=== PATIENT | male | born 1965 | race Hispanic/Latino ===

== ENCOUNTER 2019-06-25 21:29 | Emergency (ER) | payer OTHER ==
[~2019-06-25] VITALS: Ht 170.2 cm; Wt 88.5 kg
--- OUTSIDE RECORDS SUMMARY | 2019-06-25 21:32 | XMS REPORT | Summary of Care ---
Author Author [facility] Organization [facility] Address Unknown Phone Unavailable Care Team Providers Care Flight Service Agent Name Role Phone Raul Desouza MD PCP Reason for Referral * Radiology Services (Routine) Referred By Contact Referred To Contact Status Reason Specialty Diagnoses / Procedures Danny Akbar MD [address] [place] [address] Authorization Cardiology Diagnoses Not Needed Coronary artery disease of [place] artery of [place] heart with stable angina pectoris S/P drug eluting coronary stent placement Dyslipidemia Essential hypertension Snoring limited P rocedures ECHO LIMITED * Consult, Test & Treat (Routine) Referred By Contact Referred To Contact Status Reason Specialty Diagnoses / Procedures Danny Akbar MD [address] [place] [address] In [facility] Center [address] [facility]. 8th Floor; [address] [place] [address] Pending Consult, Test, and Sleep Medicine / Diagnoses Treat Sleep Center Snoring P rocedures ND OFFICE OUTPATIENT NEW 30 MINUTES Reason for Visit * Reason Comments Cardiology Follow-up Encounter Details Care Team Description Date Type Department Danny Akbar MD [address] [place] [address] Cardiology Follow-up 03/07/2019 Office Visit [facility] Cardiology [address] , [facility] [address] [place] [address] Allergies No Known Allergiesdocumented as of this encounter (statuses as of 03/12/2019) Medications End Date Status Medication Sig Dispensed Refills Start Date Active aspirin 81 MG tablet Take 81 mg by 0 mouth daily. Active lisinopril (PRINIVIL, Take 20 mg by 0 ZESTRIL) 20 MG tablet mouth daily. Active atorvastatin (LIPITOR) 40 Take 40 mg by 0 MG tablet mouth daily. Active clopidogrel (PLAVIX) 75 First day 98 Tab 3 MG tablet loading dose 9 take 600 mg, then 1 tablet daily after Active nitroglycerin (NITROSTAT) Place 1 Tab 25 Tab 3 0.4 mg sublingual tablet under the 9 tongue every 5 minutes as needed for Chest pain. Active isosorbide mononitrate Take 1 Tab by 30 Tab 5 (IMDUR) 30 MG CR tablet mouth every 9 morning. documented as of this encounter (statuses as of 03/12/2019) Active Problems Not on filedocumented as of this encounter (statuses as of 03/12/2019) Social History Date Tobacco Use Types Packs/Day Years Used Never Smoker Smokeless Tobacco: Never Used Drinks/Week oz/Week Comments Alcohol Use Yes Sex Assigned at Date Recorded Not on file Industry Job Start Date Occupation Not on file Not on file Not on file Travel End Travel History Travel Start No recent travel history available. documented as of this encounter Last Filed Vital Signs Reading Time Taken Comments Vital Sign 126/81 03/07/2019 10:37 AM CDT Blood Pressure 57 03/07/2019 10:37 AM CDT Pulse - - Temperature 16 03/07/2019 10:37 AM CDT Respiratory Rate 98% 03/07/2019 10:37 AM CDT Oxygen Saturation - - Inhaled Oxygen Concentration 82.6 kg (182 lb) 03/07/2019 10:37 AM CDT Weight 167.6 cm (5' 6") 03/07/2019 10:37 AM CDT Height 29.38 03/07/2019 10:37 AM CDT Body Mass Index documented in this encounter Progress Notes * Danny Akbar MD - 03/07/2019 11:22 AM CDT Chief Complaint Cardiology Follow-up History of Presenting Illness Rashaad Jones is a 53 y.o. male here for his follow up. Referred by Dr. Iker nunez. He has a PMH of CAD, hypertension and dyslipidemia. He underwent a cardiac ca theterization on 11/02 and was found to have significant 99% mid-LAD stenosis s/p PCI with EVARISTO x3. He was started on Ticagrelor 90 mg bid. Although, due to the c ost he is now on Plavix 75 mg daily. No bleeding or bruising issues on Plavix an d ASA. Has been compliant with his medications. No chest pain, shortness of jose th or leg swelling. Blood pressures are WNL. Review of Systems Review of Systems All other systems reviewed and are negative. Past Medical History Past Medical History: Diagnosis Date CAD (coronary artery disease) Hyperlipidemia Hypertension Past Surgical History No past surgical history on file. Family History No family history on file. Current Outpatient Medications Current Outpatient Medications Medication Sig Dispense Refill aspirin 81 MG tablet Take 81 mg by mouth daily. atorvastatin (LIPITOR) 40 MG tablet Take 40 mg by mouth daily. clopidogrel (PLAVIX) 75 MG tablet First day loading dose take 600 mg, then 1 tablet daily after 98 Tab 3 lisinopril (PRINIVIL, ZESTRIL) 20 MG tablet Take 20 mg by mouth daily. No current facility-administered medications for this visit. Allergies No Known Allergies Social History Social History Tobacco Use Smoking Status Never Smoker Smokeless Tobacco Never Used Social History Substance and Sexual Activity Alcohol Use Yes Social History Substance and Sexual Activity Drug Use No Social History Substance and Sexual Activity Sexual Activity Not on file Physical Examination Vitals: Vital Signs Height: 5' 6" (167.6 cm) Weight - Scale: 182 lb (82.6 kg) Pulse: 57 Respirations: 16 BP: 126/81 Physical Exam Constitutional: He appears healthy. No distress. HENT: Mouth/Throat: Oropharynx is clear. Eyes: Pupils are equal, round, and reactive to light. Neck: Normal range of motion and thyroid normal. No JVD present. Cardiovascular: Normal rate, regular rhythm, S1 normal, S2 normal, normal heart sounds and normal pulses. Exam reveals no S3 and no S4. No murmur heard. Pulmonary/Chest: Effort normal and breath sounds normal. He has no wheezes. He h as no rales. He exhibits no tenderness. Abdominal: Soft. Bowel sounds are normal. Musculoskeletal: Normal range of motion. Neurological: He is alert and oriented to person, place, and time. He has normal motor skills. Gait normal. Skin: Skin is warm and dry. No jaundice. Laboratory Data Lab Results Component Value Date WBC 7.2 11/03/2018 HGB 13.7 11/03/2018 HCT 41.1 11/03/2018 MCV 88.4 11/03/2018 PLT 209 11/03/2018 Lab Results Component Value Date NA 134 (L) 11/03/2018 Lab Results Component Value Date K 3.7 11/03/2018 Lab Results Component Value Date BUN 14 11/03/2018 Lab Results Component Value Date CREATININE 0.77 11/03/2018 CARDIAC CATHETERIZATION LABORATORY Patient Information Name: Rashaad Jones : 1965 (53 y.o. male) Setting Date: 11/02/2018 Cooler Worker: Danny Akbar MD Clinical Data Research(s): Daljit Gabriel MD Pre-Procedure Diagnosis: Chest Pain, Abnormal Stress Test Post-Procedure Diagnosis: Coronary Artery Disease Procedure(s) Performed Coronary arteriogram of the [place] coronary arteries Percutaneous coronary intervention (PCI) with stent placement in the mid LAD wit h EVARISTO x3 - Left heart Catheterization without ventriculogram Description Presentation to Heel Sander Rubber Indication(s) Suspected CAD. Priority Status Elective Chest Pain Symptoms Typical Angina Cardiovascular Instability None Ventricular Support None Vascular Access Vessel Size Closure Right common femoral artery 6F Will be removed with manual pressure Coronary Arteriogram Vessel Engagement: LCA: JL4.0 (5F) RCA: JR4.0 (5F) [place] Vessels (Right Dominant) LM No significant obstructive disease LAD 99% mid-LAD stenosis from the first septal branch to past D1, with plaque shift into D1 ostium; 30-40% mild obstructive disease just distal to D2 LCx No significant obstructive disease. RCA No significant obstructive disease. Left Heart Catheterization was performed using the JR4 catheter, there aortic va lve was crossed with the JR4 using a J-wire and LV pressures were recorded, a ma nual pull back was performed and no gradient was found. LV 118/4/10 AO 118/76/93 Multi-vessel disease is not present. Percutaneous Coronary Intervention Medications administered during procedure or within 24 hours prior: Antiplatelet: Aspirin and Ticagrelor Anticoagulant: Unfractionated Heparin and Bivalirudin Vessel Engagement: Guide Catheter(s): XB3.5 (6F) Guide Wire(s): FIDEL Lopez MS Lesions # Segment(s) Culprit Previous PCI Pre-PCI Complexity Post-PCI 1 Mid LAD n/a No 99%. 12mm. CHOLO-3. Type A/B. 0%. CHOLO-3. 2 Diagonal 1 n/a No Plaque shift, ostium, CHOLO-3 Type A/B 0%, CHOLO-3 Intra-Coronary Devices Device Associated Lesion #'s Pre-Dilation Balloon: Emerge 2.5 x 12 mm 1 Stent: Synergy 3.0 x 24 mm 1 Post-Dilation Balloon: Emerge 2.0 x 12 mm 1 and 2 Stent: Synergy 3.0 x 12 mm 1 Stent: Synergy 3.5 x 16 mm 1 Case Log Anesthesia Lidocaine 2% SQ, Moderate Sedation (120 min) Contrast 200 mL Specimens None Grafts/Implants Coronary Artery Stent(s) - see table above Estimated Blood Loss 40 mL Blood Products Administered None Complications None Condition on Transfer Chest Pain None Cardiac Rhythm Sinus bradycardia. ST-Segment Deviation None Hemodynamic Status Stable Access Site Concerns None Impression Successful percutaneous coronary intervention. Recommendations Aspirin loading dose was given in the dental laboratory supervisor. Continue 81mg daily. The next do se is due tomorrow morning. Ticagrelor loading dose was given in the dental laboratory supervisor. Continue 90mg twice daily. Th e next dose is due tomorrow morning. Continue bivalirudin infusion for until bag finishes (approximately 1 hour). Other Patient Data Prior Cardiac Testing LVEF Assessment: 55-60% Medications Taking/Administered Aspirin Yes Statin Yes Other Lipid-Lowering No Beta Dolores No Calcium Channel Dolores No Long-Acting Nitrate No Ranolazine No Antiarrhythmic No Functional Status Heart Failure No. CSHA Frailty Score 3 - Managing Well (Medical problems are well controlled. Not regularly active be yond walking) Note Created By: Daljit Gabriel MD Assessment and Plan Rashaad Jones is a 53 y.o. male here for his follow up. Referred by Dr. Iker nunez. He has a PMH of CAD, hypertension and dyslipidemia. He underwent a cardiac ca theterization on 11/02 and was found to have significant 99% mid-LAD stenosis s/p PCI with EVARISTO x3. He was started on Ticagrelor 90 mg bid. Although, due to the c ost he is now on Plavix 75 mg daily. No bleeding or bruising issues on Plavix an d ASA. Has been compliant with his medications. No chest pain, shortness of jose th or leg swelling. Blood pressures are WNL. 1. Stable CAD, s/p (PCI) with stent placement in the mid LAD with EVARISTO x3 9. Continue DAPT (Plavix and ASA). 2. Hypertension, continue Lisinopril. 3. Dyslipidemia, tolerating well statin. Continue Lipitor 40 mg daily. 4. Nitro PRN for chest pain. 5. Repeat limited Echo to assess EF. RTC in 3 months. ICD-10-CM 1. Coronary artery disease of [place] artery of [place] heart with stable angina p ectoris I25.118 2. S/P drug eluting coronary stent placement Z95.5 3. Dyslipidemia E78.5 4. Essential hypertension I10 5. Snoring R06.83 documented in this encounter Plan of Treatment Care Team Description Date Type Specialty 03/14/2019 Ancillary Cardiology Procedure Danny Akbar MD [address] [place] [address] [phone] 06/11/2019 Office Visit Cardiology Order Schedule Name Type Priority Associated Diagnoses Expected: 03/07/2019, Expires: 03/07/2020 ECHO LIMITED Cardiac Routine Coronary artery disease Services of [place] artery of [place] heart with stable angina pectoris S/P drug eluting coronary stent placement Dyslipidemia Essential hypertension Snoring Order Schedule Name Type Priority Associated Diagnoses Ordered: 03/07/2019 AMB REF TO SLEEP Outpatient Routine Snoring [facility] Referral Health Maintenance Due Date Last Done Comments COLON CANCER SCREENIN1964 COLONOSCOPY TETANUS SHOT (ADULT) 1979 BMI FOLLOW UP PLAN 1982 HEPATITIS C SCREENING 1982 HIV SCREENING 1982 FLU VACCINE > 6 MONTHS 02/21/2019 documented as of this encounter Procedures Comments Procedure Name Priority Date/Time Associated Diagnosis LIPID PANEL Routine 03/07/2019 Coronary artery disease 1:05 PM CDT of [place] artery of [place] heart with stable angina pectoris S/P drug eluting coronary stent placement Dyslipidemia Essential hypertension Snoring documented in this encounter Results * LIPID PANEL (03/07/2019 1:05 PM CDT) CHOLESTEROL 112 <200 MG/DL [facility] TRIGLYCERIDES 92 <150 MG/DL C[facility] HDL CHOLESTEROL 30 (L) >39 MG/DL C[facility] LDL CHOLESTEROL 64 <100 MG/DL C[facility] CALCULATED LDL/HDL RATIO, 2.12 <3.55 RATIO CPL SERUM Comment: Unless Otherwise Indicated, All Testing Performed At: [facility], [address] [place] [id number] Finisher Card Tender: Miguel Rios M.D. [place] Number [id number]. [id number] Specimen Blood Performing Organization Address City/State/Zipcode Phone Number [address] [address] documented in this encounter Visit Diagnoses Diagnosis Coronary artery disease of [place] artery of [place] heart with stable angina pectoris - Primary S/P drug eluting coronary stent placement Dyslipidemia Other and unspecified hyperlipidemia Essential hypertension Unspecified essential hypertension Snoring Other dyspnea and respiratory abnormality documented in this encounter Insurance Type Payer Benefit Subscriber ID Effective Phone Address Plan / Dates Group [facility] x[facility]x [id number] [id number] [place] [address] documented as of this encounter
--- OUTSIDE RECORDS SUMMARY | 2019-06-25 21:32 | XMS REPORT ---
Author Author [facility] Address Unknown Phone Unavailable Care Team Providers Care Cutting Torch Operator Name Role Phone TC GUAN Unavailable Unavailable Problems This patient has no known problems. Allergies, Adverse Reactions, Alerts This patient has no known allergies or adverse reactions. Medications This patient has no known medications. Results Test Description Test Time Test Comments Text Results Atomic Results Result Comments BASIC METABOLIC PANEL 2018-11-03 11:55:00 SODIUM (BEAKER) (test gjtm=158) 134 meq/L 136-145 POTASSIUM (BEAKER) (test onfc=364) 3.7 meq/L 3.5-5.1 CHLORIDE (BEAKER) (test mxuq=964) 104 meq/L 98-107 CO2 (BEAKER) (test brqc=960) 26 meq/L 22-29 BLOOD UREA NITROGEN (BEAKER) (test aasu=931) 14 mg/dL 7-21 CREATININE (BEAKER) (test kalu=932) 0.77 mg/dL 0.57-1.25 GLUCOSE RANDOM (BEAKER) (test unch=001) 118 mg/dL 70-105 CALCIUM (BEAKER) (test blsy=906) 9.2 mg/dL 8.4-10.2 EGFR (BEAKER) (test gcuw=9773) 105 mL/min/1.73 sq m ESTIMATED GFR IS NOT ACCURATE CREATININE CLEARANCE IN PREDICTING GLOMERULAR FILTRATION RATE. ESTIMATED GFR IS NOT APPLICABLE FOR DIALYSIS PATIENTS. CBC W/PLT COUNT & AUTO [id number] 11:47:00* Test Item Value Reference Range Comments WHITE BLOOD CELL COUNT (BEAKER) (test ouft=645) 7.2 K/ L 3.5-10.5 RED BLOOD CELL COUNT (BEAKER) (test rbzh=818) 4.65 M/ L 4.63-6.08 HEMOGLOBIN (BEAKER) (test dnsy=150) 13.7 GM/DL 13.7-17.5 HEMATOCRIT (BEAKER) (test wfom=700) 41.1 % 40.1-51.0 MEAN CORPUSCULAR VOLUME (BEAKER) (test udby=124) 88.4 fL 79.0-92.2 MEAN CORPUSCULAR HEMOGLOBIN (BEAKER) (test nfen=451) 29.5 pg 25.7-32.2 MEAN CORPUSCULAR HEMOGLOBIN CONC (BEAKER) (test bals=519) 33.3 GM/DL 32.3-36.5 RED CELL DISTRIBUTION WIDTH (BEAKER) (test sfrp=025) 12.9 % 11.6-14.4 PLATELET COUNT (BEAKER) (test akuk=702) 209 K/CU MM 150-450 MEAN PLATELET VOLUME (BEAKER) (test kzfr=054) 9.1 fL 9.4-12.4 NUCLEATED RED BLOOD CELLS (BEAKER) (test nrqp=890) 0 /100 WBC 0-0 NEUTROPHILS RELATIVE PERCENT (BEAKER) (test uqye=302) 66 % LYMPHOCYTES RELATIVE PERCENT (BEAKER) (test itrw=323) 23 % MONOCYTES RELATIVE PERCENT (BEAKER) (test nplg=924) 7 % EOSINOPHILS RELATIVE PERCENT (BEAKER) (test detd=884) 3 % BASOPHILS RELATIVE PERCENT (BEAKER) (test wfcq=435) 0 % NEUTROPHILS ABSOLUTE COUNT (BEAKER) (test chgh=981) 4.73 K/ L 1.78-5.38 LYMPHOCYTES ABSOLUTE COUNT (BEAKER) (test xxlg=333) 1.65 K/ L 1.32-3.57 MONOCYTES ABSOLUTE COUNT (BEAKER) (test szou=660) 0.48 K/ L 0.30-0.82 EOSINOPHILS ABSOLUTE COUNT (BEAKER) (test fres=102) 0.24 K/ L 0.04-0.54 BASOPHILS ABSOLUTE COUNT (BEAKER) (test hqfh=636) 0.03 K/ L 0.01-0.08 IMMATURE GRANULOCYTES-RELATIVE PERCENT (BEAKER) (test yteh=8653) 0 % 0-1 [id number] 15:51:00* Test Item Value Reference Range Comments ACTIVATED CLOTTING TIME (BEAKER) (test zger=423) 318 sec TESTED AT [facility] [address] [facility] [address]
[2019-06-25] MEDS ORDERED: MORPHINE SULFATE 2 MG/ML SYR 1ML IV STA (22:05)
[2019-06-25] MEDS ORDERED: ONDANSETRON HCL INJ 2MG/ML 2ML 2 MG/ML VIAL ONE (22:12)
[2019-06-25] MEDS ORDERED: MORPHINE SULFATE INJ 4 MG/ML INJ 1ML ONE (22:14)
[2019-06-25] MEDS ORDERED: ONDANSETRON HCL INJ 2MG/ML 2ML 2 MG/ML VIAL IV STA (22:16)
--- NOTE | 2019-06-25 22:27 | NUR ---
US REPORTED 30 MINUTE ETA
--- NOTE | 2019-06-25 23:02 | NUR ---
US AT BEDSIDE
--- NOTE | 2019-06-25 23:48 | Diagnostic Imaging Report ---
EXAM: Right Upper Quadrant Ultrasound INDICATION: Right upper quadrant pain COMPARISON: None. TECHNIQUE: Transverse and longitudinal images of the right upper abdomen were obtained. FINDINGS: Liver: Size: 15.2 cm in the right midclavicular line, normal Appearance: Normal echogenicity, smooth contour Mass: No focal masses Gallbladder: Stones/Sludge: None Wall: 0.4 cm Appearance: No pericholecystic fluid or hydrops. Sonographic Wilder's Sign: Negative Bile Ducts: Intrahepatic Ducts: No dilatation Extrahepatic Ducts: Common bile duct measures 0.3 cm, no dilatation Pancreas: Not well visualized. Right Kidney: Size: 12.7 cm Echogenicity: Normal Parenchymal thickness: Normal Collecting system: No hydronephrosis Stones: None Cyst/Mass: 2.4 x 2 x 1.9 cm superior pole cyst. Vessels: Aorta: Visualized portions are normal Inferior Vena Cava: Visualized portions are normal Main Portal Vein: 0.7 cm, normal size with hepatopetal flow. Free Fluid: No ascites or pleural effusion IMPRESSION: Mild nonspecific gallbladder wall thickening. No cholelithiasis or additional evidence of acute cholecystitis. 2.4 cm simple right renal cyst. Signed by: Dr. Lavon Gibbons MD on 06/25/2019 11:45 PM
[2019-06-26] MEDS ORDERED: ONDANSETRON HCL INJ 2MG/ML 2ML 2 MG/ML VIAL IV STA (00:13)
[2019-06-26] MEDS ORDERED: MORPHINE SULFATE 2 MG/ML SYR 1ML IV STA (00:13)
[2019-06-26] MEDS ORDERED: TYLENOL WITH C1 EACH PO (00:16)
[2019-06-26] MEDS ORDERED: ONDANSETRON ODT8 MG PO (00:18)
[2019-06-26] MEDS ORDERED: ONDANSETRON HCL INJ 2MG/ML 2ML 2 MG/ML VIAL ONE (00:21)
[2019-06-26] MEDS ORDERED: MORPHINE SULFATE INJ 4 MG/ML INJ 1ML ONE (00:21)
[2019-06-26 00:35] VITALS: BP 142/79
== END 2019-06-26 00:37 | disposition home or self-care (01) ==
LOC: FSED 21:29
DX: R10.11 Right upper quadrant pain (principal); I10 Essential (primary) hypertension; I25.119 Atherosclerotic heart disease of native coronary artery with unspecified angina pectoris
CPT/HCPCS: 76705; 99283; J2270 ×2; J2405 ×2